=== PATIENT | male | born 1965 | race African-American/Black ===

== ENCOUNTER → 2021-09-15 | Outpatient (CLI) | payer OTHER ==
--- NOTE | 2021-09-15 16:12 | KCIC ---
CLINICAL HISTORY: Right testicle swelling. COMPARISON: None available. TECHNIQUE: Ultrasound images of the scrotum was performed with ferris-scale and color doppler. FINDINGS: The right testis measures 3.8 x 2.1 x 2.7 cm. The left testis measures 3.3 x 1.8 x 2.5 cm. There is no intratesticular abnormality. Testicular vascularity is symmetric and within normal limits . There is a benign right epididymal head cyst measuring 0.6 cm. There is a large right hydrocele. Small left hydrocele. No varicocele. IMPRESSION: Large right, small left hydroceles. Electronically signed by: Maynor Rothman MD (09/15/2021 4:10 PM) [id number]
== END ==
LOC: KCIC US 14:06
PROVIDERS: ATTEND Family Medicine
DX: N43.2 Other hydrocele (principal); L72.8 Other follicular cysts of the skin and subcutaneous tissue; N50.89 Other specified disorders of the male genital organs
CPT/HCPCS: 76870